=== PATIENT | female | born 1995 | race Caucasian/White ===

== ENCOUNTER 2017-06-07 13:10 | Emergency (ER) | payer OTHER ==
[2017-06-07] MEDS ORDERED: NS 0.9% 1000 ML* 1,000 ML IV ONE (13:32)
[2017-06-07] MEDS ORDERED: Ondansetron INJ* 2 MG/ML VIAL IV ONE (13:32)
[2017-06-07 14:22] LABS: Hematocrit 39 % (35-47); Hemoglobin 13.2 g/dl (12.0-16.0); Mean Corpuscular HGB Conc 34 g/dl (31-36); Mean Corpuscular Hemoglobin 30 pg (27-31); Mean Corpuscular Volume 87 fL (80-97); Mean Platelet Volume 9 um3 (7.4-10.4); Red Blood Count 4.46 10^6/ul (4.0-5.4); Red Cell Distribution Width 13 % (10.5-15); White Blood Count 5.2 10^3/ul (3.5-10.8)
[2017-06-07 14:35] LABS: Urine Bacteria Absent (Absent); Urine Bilirubin Negative (Negative); Urine Glucose Negative (Negative); Urine Nitrite Negative (Negative)
[2017-06-07 14:38] LABS: ALT 13 U/L (7-52); AST 21 U/L (13-39); Albumin 4.2 g/dL (3.2-5.2); Alkaline Phosphatase 39 U/L (34-104); Anion Gap 5 mmol/L (2-11); BUN/Creatinine Ratio 17.6 (8-20); Blood Urea Nitrogen 13 mg/dL (6-24); C Reactive Protein 1.69 mg/L (< 5.00); CO2 Carbon Dioxide 26 mmol/L (22-32); Chloride 104 mmol/L (101-111); EGFR African American 125.1 (>60); EGFR Non-African American 97.3 (>60); Globulin 3.1 g/dL (2-4); Glucose 80 mg/dL (70-100); Lipase 30 U/L (11.0-82.0); Potassium 3.9 mmol/L (3.5-5.0); Sodium 135 mmol/L (133-145); Total Protein 7.3 g/dL (6.4-8.9)
--- NOTE | 2017-06-07 15:01 | ED ---
Abdominal Pain/Female - HPI Summary HPI Summary: 21 female presents with complaints of - History of Current Complaint Chief Complaint: EDAbdPain Stated Complaint: ABD PAIN Time Seen by Provider: 06/07/17 13:31 Hx Last Menstrual Period: 06/19/16 Pain Intensity: 5 Allergies/Adverse Reactions: Allergies Allergy/AdvReac Type Severity Reaction Status Date / Time No Known Allergies Allergy Verified 03/06/16 17:00 PMH/Surg Hx/FS Hx/Imm Hx Infectious Disease History: No Infectious Disease History: Denies: Traveled Outside the [place] in Last 30 Days - Family History Known Family History: Positive: Unknown, Diabetes, Other - breast ca Negative: Cardiac Disease, Hypertension - Social History Alcohol Use: Rare Substance Use Type: Reports: None Smoking Status (MU): Never Smoked Tobacco Physical Exam Vital Signs On Initial Exam: Initial Vitals Temp Pulse Resp BP Pulse Ox 98.7 F 73 20 112/80 100 06/07/17 13:12 06/07/17 13:12 06/07/17 13:12 06/07/17 13:12 06/07/17 13:12 - Deena Coma Scale Coma Scale Total: 15 Diagnostics - Vital Signs Vital Signs Temp Pulse Resp BP Pulse Ox 06/07/17 14:08 97.6 F 63 18 122/77 100 06/07/17 14:00 71 100 06/07/17 13:46 66 99 06/07/17 13:44 122/77 06/07/17 13:12 98.7 F 73 20 112/80 100 - Laboratory Lab Results: Lab Results 06/07/17 06/07/17 06/07/17 Range/Units 14:00 14:00 14:00 WBC 5.2 (3.5-10.8) 10^3/ul RBC 4.46 (4.0-5.4) 10^6/ul Hgb 13.2 (12.0-16.0) g/dl Hct 39 (35-47) % MCV 87 (80-97) fL MCH 30 (27-31) pg MCHC 34 (31-36) g/dl RDW 13 (10.5-15) % Plt Count 196 (150-450) 10^3/ul MPV 9 (7.4-10.4) um3 Neut % (Auto) 60.3 (38-83) % Lymph % (Auto) 29.2 (25-47) % Eagle % (Auto) 7.0 (1-9) % Eos % (Auto) 2.8 (0-6) % Baso % (Auto) 0.7 (0-2) % Absolute Neuts (auto) 3.1 (1.5-7.7) 10^3/ul Absolute Lymphs (auto) 1.5 (1.0-4.8) 10^3/ul Absolute Monos (auto) 0.4 (0-0.8) 10^3/ul Absolute Eos (auto) 0.1 (0-0.6) 10^3/ul Absolute Basos (auto) 0 (0-0.2) 10^3/ul Absolute Nucleated RBC 0 10^3/ul Nucleated RBC % 0.1 Sodium 135 (133-145) mmol/L Potassium 3.9 (3.5-5.0) mmol/L Chloride 104 (101-111) mmol/L Carbon Dioxide 26 (22-32) mmol/L Anion Gap 5 (2-11) mmol/L BUN 13 (6-24) mg/dL Creatinine 0.74 (0.51-0.95) mg/dL Est GFR ( Amer) 125.1 (>60) Est GFR (Non-Af Amer) 97.3 (>60) BUN/Creatinine Ratio 17.6 (8-20) Glucose 80 (70-100) mg/dL Lactic Acid (0.5-2.0) mmol/L Calcium 9.0 (8.6-10.3) mg/dL Total Bilirubin 0.40 (0.2-1.0) mg/dL AST 21 (13-39) U/L ALT 13 (7-52) U/L Alkaline Phosphatase 39 (34-104) U/L C-Reactive Protein 1.69 (< 5.00) mg/L Total Protein 7.3 (6.4-8.9) g/dL Albumin 4.2 (3.2-5.2) g/dL Globulin 3.1 (2-4) g/dL Albumin/Globulin Ratio 1.4 (1-3) Lipase 30 (11.0-82.0) U/L Urine Color Yellow Urine Appearance Cloudy Urine pH 5.0 (5-9) Ur Specific [place] 1.024 (1.010-1.030) Urine Protein Negative (Negative) Urine Ketones Negative (Negative) Urine Blood Negative (Negative) Urine Nitrate Negative (Negative) Urine Bilirubin Negative (Negative) Urine Urobilinogen Negative (Negative) Ur Leukocyte Esterase 1+ H (Negative) Urine WBC (Auto) Trace(0-5/hpf) (Absent) Urine RBC (Auto) Trace(0-2/hpf) (Absent) Ur Squamous Epith Cells Present H (Absent) Urine Bacteria Absent (Absent) Urine Glucose Negative (Negative) Urine Ascorbic Acid * H (Negative) 06/07/17 Range/Units 14:00 WBC (3.5-10.8) 10^3/ul RBC (4.0-5.4) 10^6/ul Hgb (12.0-16.0) g/dl Hct (35-47) % MCV (80-97) fL MCH (27-31) pg MCHC (31-36) g/dl RDW (10.5-15) % Plt Count (150-450) 10^3/ul MPV (7.4-10.4) um3 Neut % (Auto) (38-83) % Lymph % (Auto) (25-47) % Eagle % (Auto) (1-9) % Eos % (Auto) (0-6) % Baso % (Auto) (0-2) % Absolute Neuts (auto) (1.5-7.7) 10^3/ul Absolute Lymphs (auto) (1.0-4.8) 10^3/ul Absolute Monos (auto) (0-0.8) 10^3/ul Absolute Eos (auto) (0-0.6) 10^3/ul Absolute Basos (auto) (0-0.2) 10^3/ul Absolute Nucleated RBC 10^3/ul Nucleated RBC % Sodium (133-145) mmol/L Potassium (3.5-5.0) mmol/L Chloride (101-111) mmol/L Carbon Dioxide (22-32) mmol/L Anion Gap (2-11) mmol/L BUN (6-24) mg/dL Creatinine (0.51-0.95) mg/dL Est GFR ( Amer) (>60) Est GFR (Non-Af Amer) (>60) BUN/Creatinine Ratio (8-20) Glucose (70-100) mg/dL Lactic Acid 0.8 (0.5-2.0) mmol/L Calcium (8.6-10.3) mg/dL Total Bilirubin (0.2-1.0) mg/dL AST (13-39) U/L ALT (7-52) U/L Alkaline Phosphatase (34-104) U/L C-Reactive Protein (< 5.00) mg/L Total Protein (6.4-8.9) g/dL Albumin (3.2-5.2) g/dL Globulin (2-4) g/dL Albumin/Globulin Ratio (1-3) Lipase (11.0-82.0) U/L Urine Color Urine Appearance Urine pH (5-9) Ur Specific [place] (1.010-1.030) Urine Protein (Negative) Urine Ketones (Negative) Urine Blood (Negative) Urine Nitrate (Negative) Urine Bilirubin (Negative) Urine Urobilinogen (Negative) Ur Leukocyte Esterase (Negative) Urine WBC (Auto) (Absent) Urine RBC (Auto) (Absent) Ur Squamous Epith Cells (Absent) Urine Bacteria (Absent) Urine Glucose (Negative) Urine Ascorbic Acid (Negative) Result Diagrams: 06/07/17 14:00 06/07/17 14:00 Lab Statement: Any lab studies that have been ordered have been reviewed, and results considered in the medical decision making process. Abdominal Pain Fem Course/Dx - Diagnoses Provider Diagnoses: Diffuse abdominal pain Discharge - Discharge Plan Condition: Stable Disposition: HOME Patient Education Materials: Abdominal Pain (ED) Additional Instructions: Take nausea medication as desired for nausea. Drink plenty of fluids and stick to a bland diet. Recommend taking a probiotic pill or eating french yogurt. Try taking some midol. Follow up with PCP. Return if you develop more localized pain, fever, vaginal discharge, bleeding, vomiting, diarrhea or worsening symptoms we discussed together.
[2017-06-07 15:10] VITALS: BP 104/78
== END 2017-06-07 15:09 | disposition home or self-care (01) ==
LOC: ED 13:10
DX: R10.9 Unspecified abdominal pain (principal)
CPT/HCPCS: 36415; 80053; 81003; 81015; 83605; 83690; 84702; 85025; 86140; 87086; 96374; 99284; J2405

== ENCOUNTER 2017-10-26 08:42 | Emergency (ER) | payer SELFPAY ==
[2017-10-26] MEDS ORDERED: Acetaminophen TAB* 325 MG PO ONE (09:19)
--- NOTE | 2017-10-26 09:55 | RAD ---
INDICATION: 21-year-old with sciatica. Fall 2011 COMPARISON: None TECHNIQUE: Noncontrast axial source images was performed from the thoracolumbar junction to the sacrum. Coronal and and sagittal reformatted images were generated. FINDINGS: Vertebrae: There is no fracture or acute focal bony lesion. Alignment: The lumbar vertebrae are normally aligned. Central Canal: There is a small central disc herniation at L3-L4 leading to mild deformity of the anterior thecal sac. There is mild broad-based disc bulge at L4-L5. There is broad-based central protrusion at L5-S1. There is no significant canal compromise or direct nerve root impingement. MR imaging is a more sensitive method to evaluate the canal and foramina. Intervertebral disc spaces: The disc spaces are maintained. Soft tissues: The paravertebral soft tissues are normal. Other: None IMPRESSION: NO ACUTE CT FINDINGS. DEGENERATIVE DISC CHANGES NOTED ABOVE WITHOUT EVIDENCE OF SIGNIFICANT CANAL COMPROMISE OR DIRECT NERVE ROOT IMPINGEMENT.
--- NOTE | 2017-10-26 12:33 | ED ---
Annemarie Contreras Emily, scribed for Sagar Morris MD on 10/26/17 at 0914 . Complex/Multi-Sys Presentation - HPI Summary HPI Summary: This patient is a 21 year old F presenting to [facility] status post fall on the . 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 Symptoms aggravated by nothing. 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 The patient rates the pain 8/10 in severity. Symptoms alleviated by nothing. Patient reports low back pain and buckling LE. Patient denies numbness, urinary symptoms, and bowel symptoms. Pt was seen at urgent care and prescribed a muscle relaxer and anti-inflammatory. Medications reviewed. - History Of Current Complaint Chief Complaint: EDBackInjuryPain Time Seen by Provider: 10/26/17 09:04 Hx Obtained From: Patient Onset/Duration: Sudden Onset, Lasting Days, Still Present Timing: Constant, Days Severity Currently: Severe Severity Initially: Severe Location: Pain At: - Lower back Associated Signs And Symptoms: Positive: Recent Trauma, Other - Negative urinary symptoms, bowel symptoms, and numbness - Allergies/Home Medications Allergies/Adverse Reactions: Allergies Allergy/AdvReac Type Severity Reaction Status Date / Time No Known Allergies Allergy Verified 10/26/17 08:48 Home Medications: Home Medications Cyclobenzaprine TAB* [Flexeril 10 MG TAB*] 1 tab PO TID 10/26/17 [History Confirmed 10/26/17] PMH/Surg Hx/FS Hx/Imm Hx Previously Healthy: Yes Endocrine/Hematology History: Denies: Hx Diabetes Cardiovascular History: Denies: Hx Hypertension Respiratory History: Denies: Hx Asthma - Surgical History Surgery Procedure, Year, and Place: none Infectious Disease History: No Infectious Disease History: Denies: Traveled Outside the [place] in Last 30 Days - Family History Known Family History: Positive: Unknown, Diabetes, Other - breast ca Negative: Cardiac Disease, Hypertension - Social History Occupation: Employed Full-time Lives: With Family Alcohol Use: Rare Substance Use Type: Reports: None Smoking Status (MU): Never Smoked Tobacco Review of Systems Gastrointestinal: Negative Genitourinary: Negative Positive: Other - Positive back pain and "buckling" LE Negative: Numbness All Other Systems Reviewed And Are Negative: Yes Physical Exam Triage Information Reviewed: Yes Vital Signs On Initial Exam: Initial Vitals Temp Pulse Resp BP Pulse Ox 98.2 F 85 15 117/79 99 10/26/17 08:45 10/26/17 08:45 10/26/17 08:45 10/26/17 08:45 10/26/17 08:45 Vital Signs Reviewed: Yes Appearance: Positive: Well-Appearing, Pain Distress - Mild pain and distress with movement Skin: Positive: Warm, Skin Color Reflects Adequate Perfusion, Dry Head/Face: Positive: Normal Head/Face Inspection Eyes: Positive: EOMI, AGA ENT: Positive: Normal ENT inspection Neck: Positive: Supple, Nontender Respiratory/Lung Sounds: Positive: Clear to Auscultation, Breath Sounds Present Cardiovascular: Positive: RRR Abdomen Description: Positive: Nontender, Soft Bowel Sounds: Positive: Present Musculoskeletal: Positive: Strength/ROM Intact, Other - Tenderness throughout the lumbar spine. Greatest tenderness at L4 and L5. Tenderness on the sciatic distribution to the right buttock. Patellar reflexes are 1+ bilaterally, but equal. Strength is 5/5 for dorsiflexion, plantar flexion, hip flexion, knee extension, and knee flexion. Neurological: Positive: Normal, Sensory/Motor Intact, Alert, Oriented to Person Place, Time, Other - No sensation deficits Psychiatric: Positive: Affect/Mood Appropriate Diagnostics - Vital Signs Vital Signs Temp Pulse Resp BP Pulse Ox 10/26/17 08:45 98.2 F 85 15 117/79 99 - Laboratory Lab Statement: Any lab studies that have been ordered have been reviewed, and results considered in the medical decision making process. - CT Lumbar Spine CT Interpretation Completed By: Radiologist - Lumbar spine CT reveals, per radiologist, no acute CT findings. Degenerative disc changes as noted in radiology report without evidence of significant canal compromise or direct nerve root impingement. Dr. Morris has reviewed this radiology report. Re-Evaluation - Re-Evaluation First Eval Re-Evaluation Time: 12:15 Change: Unchanged Complex Multi-Symp Course/Dx Course Of Treatment: NO NEUROLOGIC DEFICIT AT THIS TIME BY HX OR EXAM. DISCUSSED RESULTS AND NEED FOR IMMEDIATE F/U WITH ANY NEUROLOGIC DEFICIT WITH PATIENT. F/U PMD; RETURN TO ED IF WORSE/NEUROLOGIC DEFICIT. - Diagnoses Provider Diagnoses: Lumbar radiculopathy, right, Low back pain, Degenerative disc disease Discharge - Discharge Plan Condition: Stable Disposition: HOME Patient Education Materials: Lumbar Radiculopathy (ED), Degenerative Disc Disease (ED), Acute Low Back Pain (ED) Forms: *Work Release Referrals: [facility] [Outside] Non Staff,Doctor [Primary Care Provider] - Additional Instructions: FOLLOW UP WITH YOUR DOCTOR. RETURN TO THE EMERGENCY DEPARTMENT FOR ANY WORSENING OF YOUR CONDITION; PAIN, WEAKNESS, NUMBNESS, DIFFICULTY CONTROLLING BOWEL OR BLADDER OR QUESTIONS OR CONCERNS. The documentation as recorded by the Annemarie sterling Emily accurately reflects the service I personally performed and the decisions made by me, Sagar Morris MD.
[2017-10-26 13:34] VITALS: BP 101/66
== END 2017-10-26 13:32 | disposition home or self-care (01) ==
LOC: ED 08:42
DX: M54.16 Radiculopathy, lumbar region (principal); M54.5 Low back pain; M51.36 Other intervertebral disc degeneration, lumbar region
CPT/HCPCS: 72131; 99282; A9270-GY

== ENCOUNTER 2018-03-03 09:58 | Emergency (ER) | payer OTHER ==
--- NOTE | 2018-03-03 12:30 | RAD ---
HISTORY: Pain, remote trauma COMPARISONS: None VIEWS: 5, Frontal view of the pelvis with frontal and frog-leg views of the left hip and of the right hip FINDINGS: Right: BONE DENSITY: Normal. BONES: There is no displaced fracture. JOINTS: There is minimal acetabular retroversion. ALIGNMENT: There is no dislocation. The alignment is anatomic. SOFT TISSUES: Unremarkable. Left: BONE DENSITY: Normal. BONES: There is no displaced fracture. JOINTS: There is minimal acetabular retroversion. ALIGNMENT: There is no dislocation. The alignment is anatomic. SOFT TISSUES: Unremarkable. OTHER FINDINGS: None. IMPRESSION: 1. MINIMAL BILATERAL ACETABULAR RETROVERSION WHICH CAN BE ASSOCIATED WITH ACETABULAR IMPINGEMENT SYNDROME IN THE CORRECT CLINICAL SETTING. 2. NO ACUTE OSSEOUS INJURY BILATERALLY. IF SYMPTOMS PERSIST, RECOMMEND REPEAT IMAGING.
[2018-03-03 12:57] LABS: Urine Appearance Cloudy; Urine Blood 1+ (Negative); Urine Color Yellow; Urine Ketones Negative (Negative); Urine Protein Negative (Negative); Urine Specific Gravity 1.012 (1.010-1.030); Urine Urobilinogen Negative (Negative)
[2018-03-03 13:48] VITALS: BP 112/62
--- NOTE | 2018-03-03 23:44 | ED ---
Joy Contreras Julia, scribed for Brigida Carrasco MD on 03/03/18 at 1034 . Lower Extremity - HPI Summary HPI Summary: This patient is a 22 year old F presenting to [facility] with a chief complaint of bilateral hip pain for the past two days. Pt reports a fall at work in October of 2017 where she herniated L3. Ever since she reports every two weeks sharp bilateral hip pain lasting two seconds that radiates down her legs. She states her current pain is similar but has been lasting the past two days. Patient reports difficulty walking and with her regular exercise regimen. Patient denies new injury. The patient rates the pain 7/10 in severity. Pt denies chance of . Pt has taken oxycodone, prescribed from her original injury for her recent pain. History taken in X-ray tech. - History of Current Complaint Chief Complaint: EDHipPelvisInjury Stated Complaint: HIP PAIN Time Seen by Provider: 03/03/18 10:27 Hx Obtained From: Patient Hx Last Menstrual Period: 06/19/16 Mechanism Of Injury: Fall From A Standing Position Onset of Pain: Prior to Arrival Onset/Duration: Still Present Severity Initially: Mild Severity Currently: Moderate Pain Intensity: 7 Pain Scale Used: 0-10 Numeric Timing: Constant, Lasting Days Location: Radiates To - bilateral legs Associated Signs And Symptoms: Positive: Negative Aggravating Factor(s): Ambulation, Other - exercise Alleviating Factor(s): Other - prescribed meds Able to Bear Weight: Yes Related History: Occupational Injury - Allergies/Home Medications Allergies/Adverse Reactions: Allergies Allergy/AdvReac Type Severity Reaction Status Date / Time No Known Allergies Allergy Verified 03/03/18 10:22 PMH/Surg Hx/FS Hx/Imm Hx Endocrine/Hematology History: Denies: Hx Diabetes Cardiovascular History: Denies: Hx Hypertension Respiratory History: Denies: Hx Asthma - Surgical History Surgery Procedure, Year, and Place: none Infectious Disease History: No Infectious Disease History: Denies: Traveled Outside the [place] in Last 30 Days - Family History Known Family History: Positive: Diabetes, Other - breast ca Negative: Cardiac Disease, Hypertension - Social History Occupation: Employed Full-time Alcohol Use: Rare Substance Use Type: Reports: None Smoking Status (MU): Never Smoked Tobacco Review of Systems Negative: Fever Positive: Myalgia - bilateral hip and leg pain All Other Systems Reviewed And Are Negative: Yes Physical Exam - Summary Physical Exam Summary: Appearance: well appearing, moderate pain distress, Well-nourished Skin: Warm, color reflects adequate perfusion Head: Normal Head/Face inspection Eyes: Conjunctiva clear ENT: Normal inspection Neck: Supple, no nodes, no JVD. Respiratory: Lungs clear, Normal breath sounds, no respiratory distress Cardio: RRR, No murmur, pulses normal, brisk capillary refill Abdomen: soft, nontender Bowel sounds: present Musculoskeletal: Strength Intact/ ROM intact. No calf tenderness. No edema. Pain at superior iliac crest into sciatic notch bilaterally Psychological: Normal Neuro: Alert, muscle tone normal, no focal deficit Triage Information Reviewed: Yes Vital Signs On Initial Exam: Initial Vitals Temp Pulse Resp BP Pulse Ox 98.2 F 76 20 112/99 98 03/03/18 10:22 03/03/18 10:22 03/03/18 10:22 03/03/18 10:22 03/03/18 10:22 Vital Signs Reviewed: Yes Diagnostics - Vital Signs Vital Signs Temp Pulse Resp BP Pulse Ox 03/03/18 10:22 98.2 F 76 20 112/99 98 - Laboratory Lab Statement: Any lab studies that have been ordered have been reviewed, and results considered in the medical decision making process. - Radiology Hip XR Radiology Interpretation Completed By: Radiologist - 1. MINIMAL BILATERAL ACETABULAR RETROVERSION WHICH CAN BE ASSOCIATED WITH ACETABULAR IMPINGEMENT SYNDROME IN THE CORRECT CLINICAL SETTING. 2. NO ACUTE OSSEOUS INJURY BILATERALLY. IF SYMPTOMS PERSIST, RECOMMEND REPEAT IMAGING. ED Physician has reviewed this report. Re-Evaluation - Re-Evaluation 1 Re-Evaluation Time: 13:19 Comment: Pt is given copy of XR report. Pt is referred to ortho for follow up. Lower Extremity Course/Dx - Course Course Of Treatment: Pt presents with bilateral hip pain radiating into bilater legs. Pt fell in October 2017 and herniated L3. An XR is indicative of Acetabular Retroversion and associated acetabular impingement. UA reveals present sperm but is otherwise unremarkable. Pt is provided a copy of her XR report. She will be referred to ortho to follow up of imigment syndrome.Referred to Glory Gomez to help find a PCP. Prescribed Oxycodone for pain, which has helped her in the past. - Diagnoses Provider Diagnoses: Acetabular retroversion, Femoral acetabular impingement Discharge - Sign-Out/Discharge Documenting (check all that apply): Discharge/Admit/Transfer - discharge - Discharge Plan Condition: Stable Disposition: HOME Referrals: Non Staff,Doctor [Medical Doctor] - [facility] [Outside] The documentation as recorded by the Joy sterling Julia accurately reflects the service I personally performed and the decisions made by me, Brigida Carrasco MD.
== END 2018-03-03 13:47 | disposition home or self-care (01) ==
LOC: ED 09:58
DX: Q65.89 Other specified congenital deformities of hip (principal); M25.859 Other specified joint disorders, unspecified hip; M25.551 Pain in right hip; M25.552 Pain in left hip
CPT/HCPCS: 73523; 81003; 81015; 87086; 99282

== ENCOUNTER 2020-03-30 19:14 | Inpatient (IN) ==
[2020-03-30 20:59] LABS: Urine Benzodiazepine Screen None Detected (None Detect); Urine Opiates Screen None Detected (None Detect)
[2020-03-31 01:51] LABS: Hematocrit 38 % (35-47); Hemoglobin 13.2 g/dL (12.0-16.0); Mean Corpuscular HGB Conc 35 g/dL (31-36); Mean Corpuscular Hemoglobin 30 pg (27-31); Mean Corpuscular Volume 86 fL (80-97); Platelet Count 186 10^3/uL (150-450); Red Blood Count 4.42 10^6 /uL (3.70-4.87); Red Cell Distribution Width 15 % (10-15)
[2020-03-31] MEDS: Lactated Ringers 1000 ml BAG 1,000 ML IV SCH ×2 (01:51→07:46)
[2020-03-31] MEDS ORDERED: Oxytocin in LR 20 UNITS/1,000 ML BAG IVPB SCH (02:00)
[2020-03-31 02:13] LABS: ABS Eosinophils 0.1 10^3/ul (0-0.6); ABS Lymphocytes 1.6 10^3/ul (1.0-4.8); ABS Monocytes 0.9 10^3/ul (0-0.8); Eosinophil % 1.2 %; Lymphocyte % 16.3 %
[2020-03-31] MEDS ORDERED: Morphine 10 MG/ML VIAL (1 ml) IV ONE ×3 (03:26→22:15)
[2020-03-31] MEDS ORDERED: Promethazine INJ(RESTRICTED) 25 MG/ML 1 ml VIAL IV ONE ×3 (03:26→22:15)
[2020-03-31] MEDS ORDERED: Promethazine INJ(RESTRICTED) 25 MG/ML 1 ml VIAL ONE (03:37)
[2020-03-31] MEDS ORDERED: Morphine 10 MG/ML VIAL (1 ml) ONE (03:39)
[2020-03-31] MEDS: Lactated Ringers 1000 ml BAG 1,000 ML IV ONE ×2 (07:44→12:00)
[2020-03-31] MEDS ORDERED: Dinoprostone 10 MG VAG.SUPP VAGINAL ONE (14:00)
[2020-04-01] MEDS ORDERED: OBEPIDURAL 250 ML EPIDURAL ONE (04:52)
[2020-04-01] MEDS ORDERED: Sodium Citrate/Citric Acid LIQ 15 ML UDC PO PRN (05:34)
[2020-04-01] MEDS ORDERED: Lactated Ringers 1000 ml BAG 1,000 ML IV ONE (05:34)
[2020-04-01] MEDS ORDERED: Phenylephrine 40 mcg/mL 10mL (400mcg) SYRINGE IV PUSH PRN ×2 (05:34)
[2020-04-01] MEDS: Lactated Ringers 1000 ml BAG 1,000 ML IV SCH ×3 (05:35→15:22)
[2020-04-01] MEDS ORDERED: OBEPIDURAL 250 ML EPIDURAL SCH (06:00)
[2020-04-01] MEDS ORDERED: Lactated Ringers 1000 ml BAG 1,000 ML IV SCH ×2 (06:00→21:00)
[2020-04-01] MEDS ORDERED: Oxytocin in LR 20 UNITS/1,000 ML BAG IVPB SCH ×2 (06:00→21:00)
[2020-04-01] MEDS ORDERED: Ropivacaine (OR use only) 2 MG/ML 10 ML ONE (13:03)
[2020-04-01] MEDS ORDERED: Ondansetron 4 mg VIAL 2 MG/ML 2 ml VIAL IV PRN (14:12)
[2020-04-01] MEDS ORDERED: Ampicillin ADVAN 2 GM in NS 0.9% 100 ml BAG 100 ML IVPB SCH (16:00)
[2020-04-01] MEDS: Ampicillin IV 2 GM in NS 0.9% 100 ml BAG 100 ML IVPB SCH ×2 (16:35→22:30)
[2020-04-01] MEDS ORDERED: GENTAMICIN ADULT IVPB ONE (17:00)
[2020-04-01] MEDS ORDERED: NS 0.9% IVPB ONE (17:00)
[2020-04-01] MEDS ORDERED: Tranexamic Acid 1,000 MG/10 ML SDV ONE (19:16)
[2020-04-01] MEDS ORDERED: Methylergonovine 0.2 mg AMPULE 1 ml AMP IM ONE (20:14)
[2020-04-01] MEDS ORDERED: Glycerin ADULT 2.4 gm SUPP PR PRN (20:14)
[2020-04-01 20:48] LABS: Hematocrit 28 % (35-47); Hemoglobin 10.1 g/dL (12.0-16.0); Mean Corpuscular HGB Conc 36 g/dL (31-36); Mean Corpuscular Hemoglobin 30 pg (27-31); Mean Corpuscular Volume 85 fL (80-97); Platelet Count 144 10^3/uL (150-450); Red Blood Count 3.34 10^6 /uL (3.70-4.87); Red Cell Distribution Width 15 % (10-15); White Blood Count 24.6 10^3/uL (3.5-10.8)
[2020-04-01 20:52] LABS: Platelet Count 144 10^3/ul (150-450)
[2020-04-01 20:59] LABS: Activated Partial Thrombo Time 26.1 seconds (26.0-38.0); Fibrinogen 414.4 mg/dL (110.8-404.3)
[2020-04-01] MEDS: Witch Hazel PAD JAR TOPICAL PRN (20:59)
[2020-04-01] MEDS: Dibucaine 1% OINT 28.35 GM TUBE PR PRN (20:59)
[2020-04-01 21:10] LABS: ABS Lymphocytes 0.5 10^3/ul (1.0-4.8); ABS Monocytes 2.3 10^3/ul (0-0.8); Schistocytes ABSENT
[2020-04-02 01:19] LABS: Hematocrit 24 % (35-47); Hemoglobin 8.7 g/dL (12.0-16.0); Mean Corpuscular HGB Conc 36 g/dL (31-36); Mean Corpuscular Hemoglobin 31 pg (27-31); Mean Corpuscular Volume 86 fL (80-97); Mean Platelet Volume 8.3 fL (7.4-10.4); Platelet Count 161 10^3/uL (150-450); Red Blood Count 2.83 10^6 /uL (3.70-4.87); Red Cell Distribution Width 15 % (10-15); White Blood Count 26.7 10^3/uL (3.5-10.8)
[2020-04-02 01:56] LABS: ABS Basophils 0.1 10^3/ul (0-0.2); ABS Monocytes 2.4 10^3/ul (0-0.8); Lymphocyte % 3.7 %
[2020-04-02] MEDS: Ampicillin IV 2 GM in NS 0.9% 100 ml BAG 100 ML IVPB SCH (04:39)
[2020-04-02] MEDS: Lactated Ringers 1000 ml BAG 1,000 ML IV SCH (04:44)
[2020-04-02 06:38] LABS: Hematocrit 25 % (35-47); Hemoglobin 8.8 g/dL (12.0-16.0); Mean Corpuscular HGB Conc 35 g/dL (31-36); Mean Corpuscular Hemoglobin 30 pg (27-31); Mean Corpuscular Volume 86 fL (80-97); Mean Platelet Volume 7.9 fL (7.4-10.4); Platelet Count 177 10^3/uL (150-450); Red Blood Count 2.88 10^6 /uL (3.70-4.87); Red Cell Distribution Width 16 % (10-15); White Blood Count 23.6 10^3/uL (3.5-10.8)
[2020-04-02 06:43] LABS: ABS Eosinophils 0.1 10^3/ul (0-0.6); ABS Lymphocytes 1.8 10^3/ul (1.0-4.8); Eosinophil % 0.2 %; Lymphocyte % 7.7 %
[2020-04-03 07:36] LABS: ABS Eosinophils 0.3 10^3/ul (0-0.6); ABS Lymphocytes 2.2 10^3/ul (1.0-4.8); ABS Monocytes 1.1 10^3/ul (0-0.8); Eosinophil % 1.9 %; Hematocrit 21 % (35-47); Hemoglobin 7.4 g/dL (12.0-16.0); Lymphocyte % 14.8 %; Mean Corpuscular HGB Conc 35 g/dL (31-36); Mean Corpuscular Hemoglobin 30 pg (27-31); Mean Corpuscular Volume 87 fL (80-97); Mean Platelet Volume 7.4 fL (7.4-10.4); Platelet Count 173 10^3/uL (150-450); Red Blood Count 2.45 10^6 /uL (3.70-4.87); Red Cell Distribution Width 15 % (10-15); White Blood Count 14.8 10^3/uL (3.5-10.8)
[2020-04-03 08:00] VITALS: BP 117/74
[2020-04-03] MEDS: Dibucaine 1% OINT 28.35 GM TUBE PR PRN (08:43)
[2020-04-03] MEDS: Witch Hazel PAD JAR TOPICAL PRN (08:43)
== END 2020-04-03 17:00 | disposition home or self-care (01) | DRG 805 ==
LOC: MCHOBOUT 19:14 → MCHOB 20:25
PROVIDERS: ADMIT Midwife; ATTEND Midwife